=== PATIENT | male | born 1960 | race Caucasian/White ===

== ENCOUNTER 2020-03-19 17:23 | Inpatient (IN) | payer OTHER, SELFPAY ==
--- NOTE | ~2020-03-19 | XR_ITS ---
XR chest 1V portable 03/19/2020 18:03 Indication: Shortness of breath. Covid. Procedure: AP portable chest Comparison: 05/20/2017 Findings: Interval development of extensive bilateral airspace disease, compatible with pneumonia. No pleural effusion or pneumothorax. Heart size normal. No acute osseous abnormality. There are bilater al shoulder arthroplasties. Impression: 1: Extensive bilateral airspace disease, compatible with pneumonia. Reviewed, dictated and finalized at location A. OLOGIST Impression: 1: Extensive bilateral airspace disease, compatible with pneumonia.
--- NOTE | ~2020-03-19 | US_ITS ---
EXAMINATION: US abdomen limited DATE: 03/20/2020 10:22 INDICATION: Abnormal liver function tests. TECHNIQUE: Multiple grayscale and Doppler ultrasound images of the abdomen were obtained. COMPARISON: None FINDINGS: The visualized portions of the head and body of the pancreas are normal. There are cysts in the liver measuring up to 3.5 cm. No liver surface nodularity. There is normal flow in main portal v ein. The gallbladder is normal in size. No gallstones or gallbladder wall thickening. There was no so nographic Bear sign. The common duct is normal and measures 5 mm. IMPRESSION: 1. No etiology for abnormal liver function tests. Reviewed, dictated and finalized at location A. CUTTING MACHINE OPERATOR
[2020-03-19 17:33] VITALS: BP 126/87; PULSE 93; RESP 24; TEMP 38.8; O2SAT 94
--- NOTE | 2020-03-19 17:47 | ECG_ITS ---
Measurements Intervals [place] Rate: 90 P: 43 MO: 178 QRS: 41 QRSD: 102 T: 22 QT: 358 QTc: 439 Interpretive Statements SINUS RHYTHM BORDERLINE ST-T WAVE ABNORMALITY- INFERIOR LEADS BASELINE ARTIFACT- I, II, III, AVR, AVF BORDERLINE ECG Electronically Signed On 03-20-2020 7:08:50 IMPLEMENTATION PROJECT MANAGER by Manjit Cota D.O.
--- NOTE | 2020-03-19 17:49 | ED.FEVER ---
HPI - Fever General Chief Complaint: Fever <ARMAAN Molina Last Filed: 03/19/20 19:55> Stated Complaint: fever,covid positive 02/2020 <Jacki Parker PA-C - Last Filed: 03/19/20 19:55> Time Seen by Provider: 03/19/20 17:35 <Jacki Parker PA-C - Last Filed: 03/19/20 19:55> Source: patient <ARMAAN Molina Last Filed: 03/19/20 19:55> Mode of arrival: ambulatory <ARMAAN Molina Last Filed: 03/19/20 19:55> Limitations: no limitations <ARMAAN Molina Last Filed: 03/19/20 19:55> History of Present Illness HPI Narrative: This is a 60 year old male that presents to the ER for fever x 1.5 weeks. Reports he recently tested positive for covid. Reports persistent fevers. Also reports cough and shortness of breath. Denies chest pain or lower extremity edema. <ARMAAN Molina Last Filed: 03/19/20 19:55> Related Data Home Medications: Home Medications Medication Instructions Recorded Confirmed No Home Medications 03/19/20 03/19/20 <Jacki Parker PA-C - Last Filed: 03/19/20 19:55> Allergies/Adverse Reactions: Allergies Allergy/AdvReac Type Severity Reaction Status Date / Time No Known Allergies Allergy Verified 03/19/20 17:35 <ARMAAN Molina Last Filed: 03/19/20 19:55> Review of Systems Review of Systems: Narrative: CONSTITUTIONAL: Reports fever ENT: Reports rhinorrhea, congestion, sore throat CARDIOVASCULAR: Denies chest pain, or edema. RESPIRATORY: Reports cough and dyspnea. <ARMAAN Molina Last Filed: 03/19/20 19:55> All systems reviewed & are unremarkable except as noted in HPI and below <ARMAAN Molina Last Filed: 03/19/20 19:55> [facility] Past Medical History Medical History: Medical History (Updated 03/19/20 @ 20:47 by Cinda Marie DO) No significant past medical history <Jacki Parker PA-C - Last Filed: 03/19/20 19:55> Family History Family History: Family History (Updated 05/19/18 @ 15:43 by DOCTOR UNKNOWN) Mother Hypertension <Jacki Parker PA-C - Last Filed: 03/19/20 19:55> Social History Social History: Social History Smoking status: Never smoker Alcohol intake: current Drinks per week: 3 Substance use: never Gender identity (if verbalized by the patient): Male Sexual Orientation (if Verbalized by the Patient): Straight or Heterosexual Spiritual care concerns: No <Jacki Parker PA-C - Last Filed: 03/19/20 19:55> Exam Narrative: Exam Narrative: GENERAL: Well-appearing, well-nourished, and in no acute distress. HEAD: Normocephalic, atraumatic. EYES: EOMI. ENT: Nares clear, no rhinorrhea or epistaxis. Mucous membranes moist. Oropharynx without tonsillar hypertrophy exudate or other lesions. NECK: Supple. No adenopathy or masses. CHEST: Clear to auscultation. No respiratory distress. No wheezes rales or rhonchi HEART: Regular rate and rhythm. No murmur heard. Normal peripheral pulses. EXTREMITIES: Normal range of motion. No edema. SKIN: Warm, dry, no rash. NEURO: No focal deficits. Alert and oriented x3. PSYCH: Normal mood and affect <Jacki Parker PA-C - Last Filed: 03/19/20 19:55> Course DAIRY TESTER/PA Physician Supervision Pt seen and examined, vss, mild distress, RRR, ctab, awake and oriented x 3, agree with current plan and treatment. <Aditya Corrales MD - Last Filed: 03/19/20 21:01> Consultations Consultation #1: Spoke with hospitalist about patient and work-up who accepts admission. Patient will be started on Decadron <Jacki Parker PA-C - Last Filed: 03/19/20 19:55> Date: 03/19/20 <Jacki Parker PA-C - Last Filed: 03/19/20 19:55> Time: 19:55 <Jacki Parker PA-C - Last Filed: 03/19/20 19:55> Vital Signs Vital signs: Vital Signs Temperature 38.8 C H 03/19/20 17:33 Pulse Rate 93 03/19/20 17:33 Respiratory Rate 24 H 03/19/20 17:33 Blood Pressure 126/87
[2020-03-19 18:22] LABS: Basophils Percent Auto 0.2 % (0.2-1.2); Hemoglobin 14.7 g/dL (14.0-18.0); Immature Granulocyte Absolute 0.04 K/mm3 (0.00-0.031); Lymphocytes Absolute Auto 0.56 K/mm3 (0.9-3.2); Lymphocytes Percent Auto 13.8 % (18.3-44.2); Mean Corpuscular Hemoglobin 33.5 pg (26-34); Mean Corpuscular Volume 95.7 fl (80-100); Mean Platelet Volume 8.6 fl (7.4-10.4); Monocytes Absolute Auto 0.5 K/mm3 (0.1-0.6); Monocytes Percent Auto 12.8 % (2.6-8.5); Neutrophils Absolute Auto 2.9 K/mm3 (1.3-6.7); Neutrophils Percent Auto 72.2 % (45.5-73.1); Platelet Count Result 283 k/mm3 (150-375); Red Blood Count 4.39 M/mm3 (4.6-6.20); White Blood Count 4.1 K/mm3 (4.5-10.0)
[2020-03-19 18:34] LABS: Alanine Aminotransferase 240 U/L (4-50); Albumin Level 3.6 g/dL (3.5-5.1); Alkaline Phosphatase 84 U/L (38-126); Anion Gap 7 mmol/L (8-16); Aspartate Amino Transferase 185 U/L (17-59); Bilirubin,Total 0.7 mg/dL (0.2-1.3); Blood Urea Nitrogen 16 mg/dL (9-20); Calcium 8.1 mg/dL (8.4-10.2); Carbon Dioxide 26 mmol/L (22-30); Chloride 102 mmol/L (98-107); Estimated CRCL calculation 90 ml/min; Estimated Glomerular Filt Rate > 60; Glucose 128 mg/dL (75-110); Potassium 4.4 mmol/L (3.4-5.0); Sodium 135 mmol/L (137-145)
[2020-03-19] MEDS: ACETAMINOPHEN 500 MG TABLET 1000 MG PO (19:00)
[2020-03-19 19:04] VITALS: BP 119/79; PULSE 87; RESP 26; TEMP 37.7; O2SAT 90
[2020-03-19 20:27] LABS: Lactate Dehydrogenase 990 U/L (313-618)
[2020-03-19 20:41] VITALS: BP 128/79; PULSE 84; RESP 18; TEMP 37.3; O2SAT 98
--- NOTE | 2020-03-19 20:44 | PM.IMHP ---
H&P: HPI History of Present Illness Date/Time: 03/19/20 21:40 Chief Complaint: COVID positive with continuing fever and worsening shortness of breath Narrative: Rakan Orellana is a 60 year old male With a recent diagnosis of COVID-19 who presented to the ER with worsening shortness of breath and fever. The patient reports that he has had COVID symptoms for 12 days. He tested positive for COVID on 03/14/2020. His is also been ill with COVID symptoms but tested negative on the same day. He reports that he has had 12 days of fever. His fevers have been as high as 103. He had not taken any antipyretics at home in the last 24 hours. He had taken some NSAIDs in previous days med seemed to minimally help with body aches and fever. He has had a mild nonproductive cough. He reports mild headache and myalgias. He has had decreased appetite. A few days ago he had several episodes of emesis but this is since resolved. He denies any persistent nausea or vomiting. He denies any abdominal pain or loose stools. He has not noticed a loss of sense of taste or smell but has had some unusual odors. He reported that everything smelled metallic for several days. He denies any chest pain or palpitations. Over the last 5 days he has noticed development of shortness of breath. When he arrived to the ER his oxygen saturations were 94%. Shortly after arriving his oxygen saturations dropped to 90% and with activity his oxygen saturations were in the mid 80s. He has not had any lower extremity swelling or orthopnea. He denies a history of liver disease. His transaminases are elevated. He denies any risk factors for hepatitis. He has not seen a primary care physician in at least 2 years. His last primary care physician retired. Review of Systems Review of Systems: Narrative: 12 systems were reviewed with pertinent positives and negatives per HPI. Except as documented in the HPI, all other systems were reviewed and are negative. [facility] Past Medical History Medical History (Updated 03/19/20 @ 23:18 by Cinda Marie DO) No significant past medical history Surgical History Surgical History (Updated 03/19/20 @ 23:11 by Cinda Marie DO) History of replacement of both shoulder joints 2013 and 2014 Family History Family History (Updated 03/19/20 @ 23:12 by Cinda Marie DO) Mother Hypertension Father Healthy male adult Social History Social History (Updated 03/19/20 @ 23:14 by Cinda Marie DO) Social History: He lives in [place] with his of 34 years. 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 He is a lifelong nonsmoker and does not drink alcohol or use illicit substances. He has 2 children who are in the 30's and are healthy. He is 1 of 6 children. All of his siblings are healthy. Primary care physician: None Code status: Full code Surrogate decision maker: Smoking status: Never smoker Alcohol intake: current Drinks per week: 3 Substance use: never Gender identity (if verbalized by the patient): Male Sexual Orientation (if Verbalized by the Patient): Straight or Heterosexual Spiritual care concerns: No Meds Home Medications and Allergies Home Medications Medication Instructions Recorded Confirmed Type No Home Medications 03/19/20 03/19/20 History Allergies Allergy/AdvReac Type Severity Reaction Status Date / Time No Known Allergies Allergy Verified 03/19/20 21:33 Vital Signs Vital Signs - 24 hr 03/19/20 17:33 03/19/20 19:04 03/19/20 20:41 Temperature 101.8 F H 99.9 F H 99.1 F Pulse Rate 93 87 84 Respiratory Rate 24 H 26 H 18 Blood Pressure 126/87 119/79 128/79 Pulse Oximetry 94 90 98 Exam Narrative: Exam Narrative: PHYSICAL EXAM: WEIGHT 83.5 kg BMI 23.6 General: No acute distress, well-developed well-nourished HEENT: Mucous membranes are moist, no oral pharyngeal erythema, no scleral icterus, no conjunctival pallor, head is normoce
--- NOTE | 2020-03-19 20:45 | ADMGEN ---
This patient, Rakan Orellana, was admitted to [facility] Surg Room 312-01. Patient/family oriented to hospital policies and general routines including ID bracelet, bed and alarms, visiting hours, pain management, procedures, bathroom and other care routines, personal items, smoking policy, room service/diet, and visiting hours. Information on how to activate the Rapid Response Team has been discussed. Patient/Family are encouraged to report perceived risks to care and to ask questions if they do not understand what they are told or what they should do.
[2020-03-19 20:50] VITALS: BP 112/68; PULSE 87; RESP 20; TEMP 37.2; O2SAT 94
[2020-03-19 21:00] VITALS: O2SAT 94
[2020-03-19 21:33] VITALS: BMI 23.6
[2020-03-19] MEDS: ENOXAPARIN 40 MG/0.4 ML SYRINGE SUB-Q (21:56)
[2020-03-19 22:31] LABS: Ferritin > 2000.00 ng/mL (11.1-264)
[2020-03-20] VITALS (7 sets, daily range): BP systolic 100–132; BP diastolic 61–78; PULSE 60–87; RESP 18–22; TEMP 36.3–37; O2SAT 91–97
[2020-03-20 06:40] LABS: Hematocrit 45.9 % (42.0-52.0); Hemoglobin 15.9 g/dL (14.0-18.0); Mean Corpuscular HGB Conc 34.6 g/dl (32-36); Mean Corpuscular Hemoglobin 33.8 pg (26-34); Mean Corpuscular Volume 97.5 fl (80-100); Mean Platelet Volume 9.2 fl (7.4-10.4); Platelet Count Result 353 k/mm3 (150-375); Red Blood Count 4.71 M/mm3 (4.6-6.20); Red Cell Distribution Width 12.1 % (11.5-14.5); White Blood Count 3.8 K/mm3 (4.5-10.0)
[2020-03-20 07:03] LABS: Alanine Aminotransferase 234 U/L (4-50); Albumin Level 3.8 g/dL (3.5-5.1); Alkaline Phosphatase 96 U/L (38-126); Anion Gap 8 mmol/L (8-16); Aspartate Amino Transferase 178 U/L (17-59); Bilirubin,Total 0.7 mg/dL (0.2-1.3); Blood Urea Nitrogen 15 mg/dL (9-20); Calcium 8.1 mg/dL (8.4-10.2); Carbon Dioxide 27 mmol/L (22-30); Chloride 103 mmol/L (98-107); Estimated CRCL calculation 114 ml/min; Estimated Glomerular Filt Rate > 60; Glucose 154 mg/dL (75-110); Potassium 3.8 mmol/L (3.4-5.0); Sodium 138 mmol/L (137-145)
[2020-03-20 07:35] LABS: Hepatitis B Surface Antigen Negative (Negative)
[2020-03-20 07:41] LABS: HAV RESULT Negative (Negative); Hepatitis B Core IgM Result Negative (Negative)
[2020-03-20 07:53] LABS: Hepatitis C Virus Antibody Negative (Negative)
[2020-03-20] MEDS: ASCORBIC ACID 500 MG TABLET PO (10:42)
[2020-03-20] MEDS: CHOLECALCIFEROL 1,000 UNITS TABLET 1000 UNITS PO (10:42)
[2020-03-20] MEDS: ZINC SULFATE 220 MG CAPSULE PO (10:42)
[2020-03-20] MEDS: ENOXAPARIN 40 MG/0.4 ML SYRINGE SUB-Q ×2 (11:59→21:39)
[2020-03-20] MEDS: DEXAMETHASONE SOD PHOS INJ 4 MG/ML VIAL 6 MG IV PUSH (12:00)
--- NOTE | 2020-03-20 13:14 | PM.IMPN ---
Progress Note: A&P Assessment and Plan (1) Pneumonia due to COVID-19 virus: Code(s): U07.1 - COVID-19; J12.82 - Pneumonia due to coronavirus disease 2019 Status: Acute Assessment and Plan: 03/20/20 13:14 patient is a 60-year-old male with no significant past medical history presented emergency department with complaint of shortness of breath, and fever for last couple days however he was tested for COVID-19 on 03/14 it was positive, initially patient initially he did not feel that short of breath with symptoms were getting progressively and presented emergency depart, he was saturating 94% on room air at rest however on exertion patient was requiring 4 L of oxygen, currently denies any fever or chills, was started on dexamethasone, vitamin-D and C as well as zinc. patient is not a candidate for remdesivir as his liver enzymes are elevated etiology uncertain as hepatitis panel is negative for acute infection, liver ultrasound did not show any pathology, patient does not able appear to be morbidly obese so unlikely fatty liver, patient has agreed to take convulsant plasma, will order today. Plan is to continue to monitor patient if remains clinically stable no fever for 2-3 days and not requiring any oxygen more than 6 L will discharge the patient home, will continue to monitor the patient. I spoke with the patient's Ashley and gave updates (2) Acute respiratory failure with hypoxia: Code(s): J96.01 - Acute respiratory failure with hypoxia Status: Acute (3) Sepsis: Qualifiers: Sepsis type: sepsis due to unspecified organism Sepsis acute organ dysfunction status: with acute organ dysfunction Severe sepsis acute organ dysfunction type: acute respiratory failure Acute respiratory failure type: with hypoxia Severe sepsis shock status: without septic shock Qualified Code(s): A41.9 - Sepsis, unspecified organism; R65.20 - Severe sepsis without septic shock; J96.01 - Acute respiratory failure with hypoxia Code(s): A41.9 - Sepsis, unspecified organism Status: Acute Assessment and Plan: Patient with criteria upon arrival most likely secondary to COVID-19 will continue to monitor (4) Elevated LFTs: Code(s): R79.89 - Other specified abnormal findings of blood chemistry Status: Acute Assessment and Plan: Etiology uncertain hepatitis panel is negative and liver ultrasound did not show any pathology will continue to monitor. Additional Plan Patient has acute hypoxic respiratory failure due to COVID-19 related pneumonia resulting in sepsis. Patient fit sepsis criteria with tachycardia, tachypnea, fever, transaminitis and leukopenia. Patient has been admitted to the hospital and started on Decadron. Will wean supplemental oxygen as tolerated. Patient is not a candidate for Remdesivir as his transaminases are nearly 5 times normal baseline. Will check hepatitis panel to rule out other causes for transaminitis but most likely cause is due to COVID-19 infection. Will hold any acetaminophen due to the patient's elevated transaminases. Will provide ibuprofen as needed for fever or pain. Subjective Date/time seen: 03/20/20 13:14 patient is a 60-year-old male with no significant past medical history presented emergency department with complaint of shortness of breath, and fever for last couple days however he was tested for COVID-19 on 03/14 it was positive, initially patient initially he did not feel that short of breath with symptoms were getting progressively and presented emergency depart, he was saturating 94% on room air at rest however on exertion patient was requiring 4 L of oxygen, currently denies any fever or chills, was started on dexamethasone, vitamin-D and C as well as zinc. patient is not a candidate for remdesivir as his liver enzymes are elevated etiology uncertain as hepatitis panel is negative for acute infection, liver ultrasound did not show any pathology, patient does not able
[2020-03-21] VITALS (11 sets, daily range): BP systolic 114–130; BP diastolic 66–77; PULSE 62–79; RESP 14–20; TEMP 36.3–37.5; O2SAT 90–96
[2020-03-21 06:58] LABS: Alanine Aminotransferase 250 U/L (4-50); Albumin Level 3.8 g/dL (3.5-5.1); Alkaline Phosphatase 90 U/L (38-126); Anion Gap 8 mmol/L (8-16); Aspartate Amino Transferase 221 U/L (17-59); Bilirubin,Total 0.7 mg/dL (0.2-1.3); Blood Urea Nitrogen 17 mg/dL (9-20); CRP 2.9 mg/dL (<1.0); Calcium 8.5 mg/dL (8.4-10.2); Carbon Dioxide 27 mmol/L (22-30); Chloride 103 mmol/L (98-107); Estimated CRCL calculation 101 ml/min; Estimated Glomerular Filt Rate > 60; Glucose 124 mg/dL (75-110); Potassium 4.2 mmol/L (3.4-5.0); Sodium 138 mmol/L (137-145)
[2020-03-21] MEDS: ENOXAPARIN 40 MG/0.4 ML SYRINGE SUB-Q ×2 (09:59→21:37)
[2020-03-21] MEDS: CHOLECALCIFEROL 1,000 UNITS TABLET 1000 UNITS PO (09:59)
[2020-03-21] MEDS: DEXAMETHASONE SOD PHOS INJ 4 MG/ML VIAL 6 MG IV PUSH (09:59)
[2020-03-21] MEDS: ZINC SULFATE 220 MG CAPSULE PO (09:59)
[2020-03-21] MEDS: ASCORBIC ACID 500 MG TABLET PO (09:59)
[2020-03-21] MEDS: IBUPROFEN 600 MG TABLET PO (10:16)
--- NOTE | 2020-03-21 15:20 | PM.IMPN ---
Progress Note: A&P Assessment and Plan (1) Pneumonia due to COVID-19 virus: Code(s): U07.1 - COVID-19; J12.82 - Pneumonia due to coronavirus disease 2019 Status: Acute Assessment and Plan: 03/21/20 15:20 patient is a 60-year-old male with no significant past medical history presented emergency department with complaint of shortness of breath, and fever for last couple days however he was tested for COVID-19 on 03/14 it was positive, initially patient initially he did not feel that short of breath with symptoms were getting progressively and presented emergency depart, he was saturating 94% on room air at rest however on exertion patient was requiring 4 L of oxygen, currently denies any fever or chills, was started on dexamethasone, vitamin-D and C as well as zinc. patient is not a candidate for remdesivir as his liver enzymes are elevated etiology uncertain as hepatitis panel is negative for acute infection, liver ultrasound did not show any pathology, patient does not able appear to be morbidly obese so unlikely fatty liver, patient has agreed to take convulsant plasma, will order today. Plan is to continue to monitor patient if remains clinically stable no fever for 2-3 days and not requiring any oxygen more than 6 L will discharge the patient home, will continue to monitor the patient. I spoke with the patient's Ashley and gave updates 03/21 patient is on dexamethasone 03/23, received plasma 03/20, not a candidate for remdesivir is patient liver enzymes are elevated, today patient states it feels tired was not able to sleep well last, remains clinically stable, only requiring 1 L of oxygen, no fever, encouraged patient to ambulate and stay active (2) Acute respiratory failure with hypoxia: Code(s): J96.01 - Acute respiratory failure with hypoxia Status: Acute Assessment and Plan: Secondary to COVID pneumonia (3) Sepsis: Qualifiers: Sepsis type: sepsis due to unspecified organism Sepsis acute organ dysfunction status: with acute organ dysfunction Severe sepsis acute organ dysfunction type: acute respiratory failure Acute respiratory failure type: with hypoxia Severe sepsis shock status: without septic shock Qualified Code(s): A41.9 - Sepsis, unspecified organism; R65.20 - Severe sepsis without septic shock; J96.01 - Acute respiratory failure with hypoxia Code(s): A41.9 - Sepsis, unspecified organism Status: Acute Assessment and Plan: Patient with criteria upon arrival most likely secondary to COVID-19 will continue to monitor (4) Elevated LFTs: Code(s): R79.89 - Other specified abnormal findings of blood chemistry Status: Acute Assessment and Plan: Etiology uncertain hepatitis panel is negative and liver ultrasound did not show any pathology will continue to monitor. Subjective Date/time seen: 03/21/20 15:20 patient is a 60-year-old male with no significant past medical history presented emergency department with complaint of shortness of breath, and fever for last couple days however he was tested for COVID-19 on 03/14 it was positive, initially patient initially he did not feel that short of breath with symptoms were getting progressively and presented emergency depart, he was saturating 94% on room air at rest however on exertion patient was requiring 4 L of oxygen, currently denies any fever or chills, was started on dexamethasone, vitamin-D and C as well as zinc. patient is not a candidate for remdesivir as his liver enzymes are elevated etiology uncertain as hepatitis panel is negative for acute infection, liver ultrasound did not show any pathology, patient does not able appear to be morbidly obese so unlikely fatty liver, patient has agreed to take convulsant plasma, will order today. Plan is to continue to monitor patient if remains clinically stable no fever for 2-3 days and not requiring any oxygen more than 6 L will discharge the patient home, will contin
[2020-03-22] VITALS (8 sets, daily range): BP systolic 114–121; BP diastolic 66–98; PULSE 57–71; RESP 16–18; TEMP 36.3–36.9; O2SAT 91–97
[2020-03-22 07:25] LABS: Alanine Aminotransferase 257 U/L (4-50); Albumin Level 3.3 g/dL (3.5-5.1); Alkaline Phosphatase 79 U/L (38-126); Anion Gap 4 mmol/L (8-16); Aspartate Amino Transferase 153 U/L (17-59); Bilirubin,Total 0.7 mg/dL (0.2-1.3); Blood Urea Nitrogen 17 mg/dL (9-20); CRP 2.2 mg/dL (<1.0); Calcium 8.3 mg/dL (8.4-10.2); Carbon Dioxide 28 mmol/L (22-30); Chloride 106 mmol/L (98-107); Estimated CRCL calculation 114 ml/min; Estimated Glomerular Filt Rate > 60; Glucose 101 mg/dL (75-110); Potassium 4.1 mmol/L (3.4-5.0); Sodium 138 mmol/L (137-145)
[2020-03-22] MEDS: ENOXAPARIN 40 MG/0.4 ML SYRINGE SUB-Q ×2 (10:28→20:36)
[2020-03-22] MEDS: DEXAMETHASONE SOD PHOS INJ 4 MG/ML VIAL 6 MG IV PUSH (10:28)
[2020-03-22] MEDS: ZINC SULFATE 220 MG CAPSULE PO (10:28)
[2020-03-22] MEDS: ASCORBIC ACID 500 MG TABLET PO (10:28)
[2020-03-22] MEDS: CHOLECALCIFEROL 1,000 UNITS TABLET 1000 UNITS PO (10:28)
--- NOTE | 2020-03-22 15:54 | PM.IMPN ---
Progress Note: A&P Assessment and Plan (1) Pneumonia due to COVID-19 virus: Code(s): U07.1 - COVID-19; J12.82 - Pneumonia due to coronavirus disease 2019 Status: Acute Assessment and Plan: 03/22/20 15:54 patient is a 60-year-old male with no significant past medical history presented emergency department with complaint of shortness of breath, and fever for last couple days however he was tested for COVID-19 on 03/14 it was positive, initially patient initially he did not feel that short of breath with symptoms were getting progressively and presented emergency depart, he was saturating 94% on room air at rest however on exertion patient was requiring 4 L of oxygen, currently denies any fever or chills, was started on dexamethasone, vitamin-D and C as well as zinc. patient is not a candidate for remdesivir as his liver enzymes are elevated etiology uncertain as hepatitis panel is negative for acute infection, liver ultrasound did not show any pathology, patient does not able appear to be morbidly obese so unlikely fatty liver, patient has agreed to take convulsant plasma, will order today. Plan is to continue to monitor patient if remains clinically stable no fever for 2-3 days and not requiring any oxygen more than 6 L will discharge the patient home, will continue to monitor the patient. I spoke with the patient's Ashley and gave updates 03/21 patient is on dexamethasone 03/23, received plasma 03/20, not a candidate for remdesivir is patient liver enzymes are elevated, today patient states it feels tired was not able to sleep well last, remains clinically stable, only requiring 1 L of oxygen, no fever, encouraged patient to ambulate and stay active 03/22 patient is on dexamethasone 04/20, received plasma 03/20, not a candidate for remdesivir as patient liver enzymes are elevated, today patient states feeling better not as tired or short of breath as yesterday, was able to walk around the room, he is not requiring any oxygen, he does not have any fever, if patient remains clinically stable tomorrow, possibly discharge the patient home and he has agreed with plan (2) Acute respiratory failure with hypoxia: Code(s): J96.01 - Acute respiratory failure with hypoxia Status: Acute Assessment and Plan: Secondary to COVID pneumonia (3) Sepsis: Qualifiers: Sepsis type: sepsis due to unspecified organism Sepsis acute organ dysfunction status: with acute organ dysfunction Severe sepsis acute organ dysfunction type: acute respiratory failure Acute respiratory failure type: with hypoxia Severe sepsis shock status: without septic shock Qualified Code(s): A41.9 - Sepsis, unspecified organism; R65.20 - Severe sepsis without septic shock; J96.01 - Acute respiratory failure with hypoxia Code(s): A41.9 - Sepsis, unspecified organism Status: Acute Assessment and Plan: Patient with criteria upon arrival most likely secondary to COVID-19 will continue to monitor (4) Elevated LFTs: Code(s): R79.89 - Other specified abnormal findings of blood chemistry Status: Acute Assessment and Plan: Etiology uncertain hepatitis panel is negative and liver ultrasound did not show any pathology will continue to monitor. Subjective Date/time seen: 03/22/20 15:54 patient is a 60-year-old male with no significant past medical history presented emergency department with complaint of shortness of breath, and fever for last couple days however he was tested for COVID-19 on 03/14 it was positive, initially patient initially he did not feel that short of breath with symptoms were getting progressively and presented emergency depart, he was saturating 94% on room air at rest however on exertion patient was requiring 4 L of oxygen, currently denies any fever or chills, was started on dexamethasone, vitamin-D and C as well as zinc. patient is not a candidate for remdesivir as his liver enzymes are elevated etiology unc
[2020-03-23] VITALS: BP 114/72; PULSE 61; RESP 18; TEMP 36.8; O2SAT 91
[2020-03-23 04:00] VITALS: BP 125/75; PULSE 59; RESP 18; TEMP 36.9; O2SAT 93
[2020-03-23 06:41] LABS: Alanine Aminotransferase 230 U/L (4-50); Albumin Level 3.2 g/dL (3.5-5.1); Alkaline Phosphatase 72 U/L (38-126); Anion Gap 5 mmol/L (8-16); Aspartate Amino Transferase 115 U/L (17-59); Bilirubin,Total 0.7 mg/dL (0.2-1.3); Blood Urea Nitrogen 18 mg/dL (9-20); CRP 1.3 mg/dL (<1.0); Calcium 8.4 mg/dL (8.4-10.2); Carbon Dioxide 25 mmol/L (22-30); Chloride 108 mmol/L (98-107); Estimated CRCL calculation 114 ml/min; Estimated Glomerular Filt Rate > 60; Glucose 97 mg/dL (75-110); Potassium 4.2 mmol/L (3.4-5.0); Sodium 138 mmol/L (137-145)
[2020-03-23 08:00] VITALS: BP 135/76; PULSE 67; RESP 16; TEMP 36.3; O2SAT 91
[2020-03-23] MEDS: DEXAMETHASONE SOD PHOS INJ 4 MG/ML VIAL 6 MG IV PUSH (08:33)
[2020-03-23] MEDS: ENOXAPARIN 40 MG/0.4 ML SYRINGE SUB-Q (08:33)
[2020-03-23] MEDS: ASCORBIC ACID 500 MG TABLET PO (08:34)
[2020-03-23] MEDS: CHOLECALCIFEROL 1,000 UNITS TABLET 1000 UNITS PO (08:34)
[2020-03-23] MEDS: ZINC SULFATE 220 MG CAPSULE PO (08:34)
[2020-03-23 12:00] VITALS: BP 130/75; PULSE 71; RESP 16; TEMP 36.6; O2SAT 93
--- NOTE | 2020-03-23 16:05 | PM.DS ---
DS: Admitting Diagnosis Admitting Diagnosis Admitting Diagnosis: Chief Complaint: COVID positive with continuing fever and worsening shortness of breath DS: Discharge Diagnosis Discharge Diagnosis (1) Pneumonia due to COVID-19 virus: Code(s): U07.1 - COVID-19; J12.82 - Pneumonia due to coronavirus disease 2019 Status: Acute Assessment and Plan: 03/22/20 15:54 patient is a 60-year-old male with no significant past medical history presented emergency department with complaint of shortness of breath, and fever for last couple days however he was tested for COVID-19 on 03/14 it was positive, initially patient initially he did not feel that short of breath with symptoms were getting progressively and presented emergency depart, he was saturating 94% on room air at rest however on exertion patient was requiring 4 L of oxygen, currently denies any fever or chills, was started on dexamethasone, vitamin-D and C as well as zinc. patient is not a candidate for remdesivir as his liver enzymes are elevated etiology uncertain as hepatitis panel is negative for acute infection, liver ultrasound did not show any pathology, patient does not able appear to be morbidly obese so unlikely fatty liver, patient has agreed to take convulsant plasma, will order today. Plan is to continue to monitor patient if remains clinically stable no fever for 2-3 days and not requiring any oxygen more than 6 L will discharge the patient home, will continue to monitor the patient. I spoke with the patient's Ashley and gave updates 03/21 patient is on dexamethasone 03/23, received plasma 03/20, not a candidate for remdesivir is patient liver enzymes are elevated, today patient states it feels tired was not able to sleep well last, remains clinically stable, only requiring 1 L of oxygen, no fever, encouraged patient to ambulate and stay active 03/22 patient is on dexamethasone 04/20, received plasma 03/20, not a candidate for remdesivir as patient liver enzymes are elevated, today patient states feeling better not as tired or short of breath as yesterday, was able to walk around the room, he is not requiring any oxygen, he does not have any fever, if patient remains clinically stable tomorrow, possibly discharge the patient home and he has agreed with plan (2) Acute respiratory failure with hypoxia: Code(s): J96.01 - Acute respiratory failure with hypoxia Status: Acute Assessment and Plan: Secondary to COVID pneumonia (3) Sepsis: Qualifiers: Sepsis type: sepsis due to unspecified organism Sepsis acute organ dysfunction status: with acute organ dysfunction Severe sepsis acute organ dysfunction type: acute respiratory failure Acute respiratory failure type: with hypoxia Severe sepsis shock status: without septic shock Qualified Code(s): A41.9 - Sepsis, unspecified organism; R65.20 - Severe sepsis without septic shock; J96.01 - Acute respiratory failure with hypoxia Code(s): A41.9 - Sepsis, unspecified organism Status: Acute Assessment and Plan: Patient with criteria upon arrival most likely secondary to COVID-19 will continue to monitor (4) Elevated LFTs: Code(s): R79.89 - Other specified abnormal findings of blood chemistry Status: Acute Assessment and Plan: Etiology uncertain hepatitis panel is negative and liver ultrasound did not show any pathology will continue to monitor. DS: Summary Hospital Course Reason for hospitalization: Chief Complaint: COVID positive with continuing fever and worsening shortness of breath Narrative: Rakan Orellana is a 60 year old male With a recent diagnosis of COVID-19 who presented to the ER with worsening shortness of breath and fever. The patient reports that he has had COVID symptoms for 12 days. He tested positive for COVID on 03/14/2020. His is also been ill with COVID symptoms but tested negative on the same day. He reports that he has had 12 days o
== END 2020-03-23 16:00 | disposition home or self-care (01) | DRG 871 ==
LOC: ANHED 19:53 → ANH3MEDSUR 03-20 01:04
PROVIDERS: Physician Assistant; Admitting Provider Internal Medicine; Emergency Provider Emergency Medicine; Visit Provider Family Medicine
DX: A41.89 Other specified sepsis (principal); U07.1 COVID-19; J12.82 Pneumonia due to coronavirus disease 2019; J96.01 Acute respiratory failure with hypoxia; R65.20 Severe sepsis without septic shock; R79.89 Other specified abnormal findings of blood chemistry
CPT/HCPCS: 36415; 36430; 71045; 76705; 80053; 80074; 82728; 83615; 85025; 85027; 86140; 86900; 86901; 93005; 99291; A9270; J1100; J1650; P9059

== ENCOUNTER 2021-10-07 08:31 | Emergency (ER) | payer OTHER, SELFPAY ==
--- NOTE | ~2021-10-07 | CT_ITS ---
EXAMINATION: CT soft tissue neck w con DATE: 10/07/2021 09:59 INDICATION: Sore throat, voice change TECHNIQUE: Computed tomography (CT) of the neck was performed with 75 cc of Omnipaque 350 intravenous contrast. The dose-length product (DLP) was 576.32 mGy-cm. Automated exposure control and iterative reconstruction technique were employed. COMPARISON: None FINDINGS: There is an approximately 2.1 x 1.8 x 2.9 cm right peritonsillar abscess. There is surround ing soft tissue edema. There is mass effect on the upper airway. Mildly enlarged right cervical lymph nodes are likely reactive. No acute osseous findings are evident. There is moderate to severe cervic al spondylosis. A polyp or mucous retention cyst is noted in the right maxillary sinus. IMPRESSION: 1. Right peritonsillar abscess measuring up to 2.9 cm with mass effect on the upper airway. Reviewed, dictated and finalized at location A. IMPRESSION: 1. Right peritonsillar abscess measuring up to 2.9 cm with mass effect on the u pper airway.
[2021-10-07 08:35] VITALS: BP 108/87; PULSE 87; RESP 18; TEMP 37.1; O2SAT 99
[2021-10-07 08:43] VITALS: RESP 18; O2SAT 98
--- NOTE | 2021-10-07 09:03 | ED.GENADULT ---
HPI - General Adult General Chief complaint: Unspecified Stated complaint: sore throat, swelling to tongue Time Seen by Provider: 10/07/21 08:53 History of Present Illness HPI narrative: Patient is a 61-year-old male here for evaluation of sore throat, tongue swelling, and voice changes for the past day. Patient was seen at an urgent care facility 2 days ago, was diagnosed with tonsillitis and was given amoxicillin. Strep test was negative. Patient states that despite compliance with antibiotics, his symptoms have progressed, and he now feels that his tongue is swollen. Additionally he believes that his voice has changed, and he is having trouble opening his mouth. He is tolerating his secretions. Denies any fevers or chills, nausea or vomiting, shortness of breath. Related Data Allergies Allergy/AdvReac Type Severity Reaction Status Date / Time No Known Allergies Allergy Verified 10/07/21 08:49 Review of Systems Review of Systems: Gen: Denies fevers or chills Eyes: Denies eye pain or visual change ENT: Reports sore throat Respiratory: Denies shortness of breath or cough CV: Denies chest pain or palpitations GI: Denies abdominal pain nausea, emesis or diarrhea denies burning, urgency, frequency or hematuria Musculoskeletal: Denies back pain or muscle pain Neuro: Denies numbness, tingling, weakness or focal weakness Skin: Denies rash Except as documented, all other systems reviewed and negative [facility] Past Medical History Medical History No significant past medical history Surgical History Surgical History History of replacement of both shoulder joints 2013 and 2014 Family History Family History (Updated 03/19/20 @ 23:12 by Cinda Marie DO) Mother Hypertension Father Healthy male adult Social History Social History (Updated 03/19/20 @ 23:14 by Cinda Marie DO) Social History: He lives in [place] with his of 34 years. 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 He is a lifelong nonsmoker and does not drink alcohol or use illicit substances. He has 2 children who are in the 30's and are healthy. He is 1 of 6 children. All of his siblings are healthy. Primary care physician: None Code status: Full code Surrogate decision maker: Smoking status: Never smoker Alcohol intake: current Drinks per week: 3 Substance use: never Gender identity (if verbalized by the patient): Male Sexual Orientation (if Verbalized by the Patient): Straight or Heterosexual Spiritual care concerns: No Exam Narrative: APPEARANCE: Well appearing, no pain in distress, well-nourished. Head: Normocephalic and atraumatic. EYES: PERRLA/EOMI, conjunctivae clear NOSE: No nasal drainage EARS: External ear normal in appearance THROAT: Patient has marked swelling in the back of his throat, right over left, tongue obscures complete visualization of the tonsils. No drooling, patient is tolerating secretions. NECK: Supple. No adenopathy, no masses. RESPIRATORY: Airway patent, respirations nonlabored. Clear to auscultation bilaterally, no rales, rhonchi, wheezing. CARDIOVASCULAR: Regular rate and rhythm without murmurs, rubs, or gallops. ABDOMINAL: Normoactive bowel sounds. Soft, nontender, nondistended. No rebound tenderness or guarding. MUSCULOSKELETAL: Extremities are warm and well-perfused. Moves all extremities well. No edema. NEURO: Normal speech. No focal neurologic deficits. SKIN: Skin is warm and dry. No rashes. PSYCHIATRIC: Normal affect/mood. Course Consultations Consultation #1: Spoke with Dr. Tuttle, ENT, agrees with plan for transfer as ED--> ED Date: 10/07/21 Time: 11:15 Consultation #2: Spoke with Dr. Tyson, ED doctor, accepts transfer Date: 10/07/21 Time: 11:19 Vital Signs Vital signs: Vital Signs Temperature 98.7 F 10/07/21 08:35 Pulse Rate 87 08
[2021-10-07 09:16] LABS: Basophils Percent Auto 0.3 % (0.2-1.2); Eosinophils Absolute Auto 0.1 K/mm3 (0-0.3); Eosinophils Percent Auto 0.5 % (0-4.4); Hematocrit 40.9 % (42.0-52.0); Immature Granulocyte Absolute 0.06 K/mm3 (0.00-0.031); Immature Granulocyte Percent A 0.5 % (0-0.5); Lymphocytes Absolute Auto 1.09 K/mm3 (0.9-3.2); Lymphocytes Percent Auto 8.3 % (18.3-44.2); Mean Corpuscular HGB Conc 34.2 g/dl (32-36); Mean Corpuscular Hemoglobin 33.8 pg (26-34); Mean Corpuscular Volume 98.8 fl (80-100); Mean Platelet Volume 9.3 fl (7.4-10.4); Monocytes Absolute Auto 1.6 K/mm3 (0.1-0.6); Monocytes Percent Auto 12.1 % (2.6-8.5); Neutrophils Absolute Auto 10.3 K/mm3 (1.3-6.7); Neutrophils Percent Auto 78.3 % (45.5-73.1); Platelet Count Result 248 k/mm3 (150-375); Red Blood Count 4.14 M/mm3 (4.6-6.20); Red Cell Distribution Width 12.3 % (11.5-14.5); White Blood Count 13.2 K/mm3 (4.5-10.0)
[2021-10-07] MEDS: AMPICILLIN SULB 3 GM/NS 100 ML 3 GM/100 ML VIAL IVPB (09:18)
[2021-10-07 09:26] LABS: Alanine Aminotransferase 45 U/L (6-50); Alkaline Phosphatase 74 U/L (38-126); Anion Gap 7 mmol/L (8-16); Aspartate Amino Transferase 35 U/L (17-59); Bilirubin,Total 2.5 mg/dL (0.2-1.3); Blood Urea Nitrogen 14 mg/dL (9-20); Calcium 9.3 mg/dL (8.4-10.2); Carbon Dioxide 28 mmol/L (22-30); Chloride 98 mmol/L (98-107); Estimated CRCL calculation 112 ml/min; Estimated Glomerular Filt Rate > 60; Glucose 108 mg/dL (65-110); Potassium 4.4 mmol/L (3.4-5.0); Sodium 133 mmol/L (137-145)
[2021-10-07] MEDS: SODIUM CHLORIDE 0.9% IV 1,000 ML 999 ML IV CONT (10:12)
[2021-10-07 11:54] VITALS: BP 109/76; PULSE 86; RESP 18; O2SAT 98
== END 2021-10-07 12:28 | disposition short-term general hospital (02) ==
PROVIDERS: Physician Assistant; Emergency Provider Emergency Medicine
DX: J36 Peritonsillar abscess (principal); Z96.612 Presence of left artificial shoulder joint; Z96.611 Presence of right artificial shoulder joint
CPT/HCPCS: 36415; 70491; 80053; 85025; 96361; 96365; 96375; 99285; J0295; J1100; J7030; Q9967